=== PATIENT | female | born 1955 | race Caucasian/White ===

== ENCOUNTER 2017-03-08 08:39 | Emergency (ER) | payer BC ==
[2017-03-08 08:57] VITALS: BP 118/78
[2017-03-08] MEDS ORDERED: cefTRIAXone 1 GM, Lidocaine 1% 2.1 ML IM ONE ×2 (09:28)
--- NOTE | 2017-03-08 09:55 | EDM.PDOC ---
ED HPI GENERAL MEDICAL PROBLEM - General Chief Complaint: Genitourinary Problem Stated Complaint: BLADDER INFECTION? Time Seen by Provider: 03/08/17 09:51 Source of Information: Reports: Patient, RN Notes Reviewed History Limitations: Reports: No Limitations - History of Present Illness INITIAL COMMENTS - FREE TEXT/NARRATIVE: 61-year-old female presents emergency department day complaint of burning with urination she states she's had symptoms for about 4 days she also mentions she has a history of colon resection and does have trouble with oral antibiotics she denies any fever has a little bit of left flank pain Pelvic Pain Score (Numeric/FACES): 8 - Related Data Allergies Allergy/AdvReac Type Severity Reaction Status Date / Time No Known Allergies Allergy Verified 03/08/17 08:57 Home Meds: Home Meds Cyanocobalamin (Vitamin B-12) [Cyanocobalamin Injection] 1,000 mcg IJ ASDIRECTED 03/08/17 [History] FLUoxetine HCl [Fluoxetine HCl] 20 mg PO DAILY 03/08/17 [History] LORazepam [LORazepam] 0.5 mg PO ASDIRECTED PRN 03/08/17 [History] Past Medical History 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: Psychiatric History: Reports: Depression, Panic Attack Hematologic History: Reports: B12 Deficiency Dermatologic History: Reports: Eczema - Past Surgical History GI Surgical History: Reports: Appendectomy, Colon, Colonoscopy Social & Family History - Tobacco Use Smoking Status *Q: Never Smoker - Caffeine Use Caffeine Use: Reports: Coffee, Soda, Tea - Recreational Drug Use Recreational Drug Use: No ED ROS GENERAL - Review of Systems Review Of Systems: See Below Constitutional: Denies: Fever, Chills HEENT: Reports: No Symptoms Respiratory: Reports: No Symptoms Cardiovascular: Reports: No Symptoms GI/Abdominal: Reports: No Symptoms : Reports: Dysuria, Flank Pain Musculoskeletal: Reports: No Symptoms Skin: Reports: No Symptoms Neurological: Reports: No Symptoms ED EXAM, RENAL/ - Physical Exam Exam: See Below Exam Limited By: No Limitations General Appearance: Alert, WD/WN, No Apparent Distress GI/Abdominal: Soft, Tender (super pubic) Course - Vital Signs Last Recorded V/S: Last Vital Signs Temp 97.9 F 03/08/17 08:51 Pulse 67 03/08/17 08:51 Resp 16 03/08/17 08:51 BP 118/78 03/08/17 08:51 Pulse Ox 99 03/08/17 08:51 - Orders/Labs/Meds Orders: Active Orders 24 hr Category Date Time Status CULTURE URINE [RM] Urgent Lab 03/08/17 09:24 Ordered Labs: Laboratory Tests 03/08/17 Range/Units 09:03 Urine Color Brown Urine Appearance Turbid Urine pH 6.5 (4.5-8.0) Ur Specific [place] 1.005 L (1.008-1.030) Urine Protein 100 H (NEGATIVE) mg/dL Urine Glucose (UA) Normal (NEGATIVE) mg/dL Urine Ketones Negative (NEGATIVE) mg/dL Urine Occult Blood Large (NEGATIVE) Urine Nitrite Negative (NEGATIVE) Urine Bilirubin Negative (NEGATIVE) Urine Urobilinogen Normal (NORMAL) mg/dL Ur Leukocyte Esterase Large (NEGATIVE) Urine RBC Packed H (0-5) Urine WBC Packed H (0-5) Ur Epithelial Cells Not seen Amorphous Sediment Not seen Urine Bacteria Many Urine Mucus Not seen Meds: Medications Discontinued Medications Generic Name Dose Route Start Last Admin Trade Name Donis PRN Reason Stop Dose Admin Ceftriaxone Sodium 1 gm/ 0 gm 03/08/17 09:28 Lidocaine HCl 2.1 ml IM 03/08/17 09:29 ONETIME ONE Departure - Departure Time of Disposition: 09:54 Disposition: Home, Self-Care 01 Condition: Good Clinical Impression: UTI, Urinary tract infectious disease - Discharge Information Referrals: PCP,None [Primary Care Provider] - Additional Instructions: Please report to the emergency department tomorrow for antibiotics - My Orders Last 24 Hours: My Active Orders 03/08/17 09:24 CULTURE URINE [RM] Urgent - Assessment/Plan Last 24 Hours: My Active Orders 03/08/17 09:24 CULTURE URINE [RM] Urgent Plan: Assessment Acuity = acute Site and laterality = urinary tract infection Etiology = suspicious for bacterial cause Manifestations = dysuria Location of injury = Home Lab values = urinalysis reveals packed WBCs consistent with pyuria and packed rbc's consistent hematuria cultures pending Plan Given her history with difficulty with oral antibiotics 1 g IM Rocephin provided now plan for 1 g Rocephin tomorrow will reevaluate at that time Patient was in agreement with the plan all questions were answered, they were instructed to return to the emergency department or call for worsening symptoms. This note was dictated using [employer] voice recognition software please call with any questions.
[2017-03-09] MEDS ORDERED: cefTRIAXone 1 GM Vial ONE (12:45)
== END 2017-03-08 10:45 | disposition home or self-care (01) ==
LOC: JP.ED 08:39
DX: N39.0 Urinary tract infection, site not specified (principal); F41.0 Panic disorder [episodic paroxysmal anxiety]; F32.9 Major depressive disorder, single episode, unspecified; Z90.49 Acquired absence of other specified parts of digestive tract; Z79.899 Other long term (current) drug therapy
CPT/HCPCS: 81001; 87086; 87088; 87186; 96372; 99284; J0696

== ENCOUNTER 2022-12-08 17:52 | Emergency (ER) | payer MEDICARE, BC ==
[2022-12-08 18:36] VITALS: BP 119/66; PULSE 68
== END 2022-12-08 18:44 | disposition home or self-care (01) ==
LOC: JP.ED 17:52
DX: S30.851A Superficial foreign body of abdominal wall, initial encounter (principal); Z90.49 Acquired absence of other specified parts of digestive tract; W45.8XXA Other foreign body or object entering through skin, initial encounter
CPT/HCPCS: 99281